=== PATIENT | female | born 1960 | race Asian ===

== ENCOUNTER 2017-12-08 12:13 | Emergency (ER) | payer BC ==
[~2017-12-08] VITALS: Ht 162.6 cm; Wt 77.1 kg
[2017-12-08] MEDS ORDERED: MICROZIDE12.5 MG OR (12:31)
== END 2017-12-08 13:20 | disposition home or self-care (01) ==
LOC: ED 12:13
DX: S90.122A Contusion of left lesser toe(s) without damage to nail, initial encounter (principal); W18.2XXA Fall in (into) shower or empty bathtub, initial encounter; Y92.098 Other place in other non-institutional residence as the place of occurrence of the external cause
CPT/HCPCS: 96372; 99282; J1885

== ENCOUNTER 2020-09-13 08:26 | Outpatient (CLI) | payer BC ==
[~2020-09-13 08:26] MED LIST: MICROZIDE12.5 MG OR
== END 2020-09-13 22:25 | disposition home or self-care (01) ==
LOC: MRI 08:26
DX: M25.511 Pain in right shoulder (principal); M75.31 Calcific tendinitis of right shoulder; M75.101 Unspecified rotator cuff tear or rupture of right shoulder, not specified as traumatic

== ENCOUNTER 2020-10-05 08:31 | Outpatient (CLI) | payer BC | END 2020-10-05 19:42 | disposition home or self-care (01) | LOC: RAD 08:31 | PROVIDERS: ATTEND Nurse Practitioner | DX: Z01.818 Encounter for other preprocedural examination (principal) ==